=== PATIENT | male | born 1980 | race Caucasian/White ===

== ENCOUNTER 2020-06-01 11:56 | Outpatient (CLI) | payer OTHER ==
--- NOTE | 2020-06-01 13:49 | RAD ---
RIGHT KNEE: Two views. HISTORY: Nonhealing wound right lower extremity. There are mild degenerative changes. The medial and lateral joint spaces are preserved. Narrowing and degenerative change at the patellofemoral joint with articular sclerosis and irregularity. No signif icant joint effusion. No fracture or acute osseous abnormality. IMPRESSION: Degenerative changes of the patellofemoral joint noted. POS: AGW
== END 2020-06-01 11:57 | disposition home or self-care (01) ==
LOC: RAD 11:56
PROVIDERS: ATTEND Surgery
DX: S81.801A Unspecified open wound, right lower leg, initial encounter (principal); M17.11 Unilateral primary osteoarthritis, right knee

== ENCOUNTER 2020-06-01 13:02 | Outpatient (CLI) | payer OTHER ==
[2020-06-01 15:44] LABS: #Basophils 0.1 10x3/uL (0.0-0.2); #Eosinphils 0.4 10x3/uL (0.0-0.5); #Monocytes 1.1 10x3/uL (0.0-1.1); #Neutrophils 6.2 10x3/uL (1.5-8.4); %Basophils 0.6 % (0.0-2.0); %Eosinophils 4.2 % (0.0-6.0); %Lymphocytes 21.5 % (18.0-47.0); %Monocytes 10.6 % (0.0-10.0); %Neutrophils 62.9 % (40.0-75.0); Hemoglobin 15.2 g/dL (13.5-17.5); Mean Corpuscular HGB CONC 34.1 g/dL (32.0-36.0); Mean Corpuscular Hemoglobin 31.6 pg (27.0-33.0); Mean Corpuscular Volume 92.7 fl (81.2-95.1); Mean Platelet Volume 10.6 fl (7.4-10.4); Platelet Count 413 10x3/uL (150-450); RBC Distribution Width 13.8 % (11.5-14.5); Red Blood Cell (RBC) Count 4.81 10x6/uL (4.32-5.72); White Blood Cell (WBC) Count 9.9 10x3/uL (3.5-10.5)
[2020-06-02 10:07] LABS: SARS-CoV-2 PCR by NAA Not Detected (NotDetected)
== END 2020-06-01 13:03 | disposition home or self-care (01) ==
LOC: LABBT 13:02
PROVIDERS: ATTEND Surgery
DX: Z01.812 Encounter for preprocedural laboratory examination (principal); Z20.822 Contact with and (suspected) exposure to COVID-19; L98.493 Non-pressure chronic ulcer of skin of other sites with necrosis of muscle
CPT/HCPCS: 85025; 87635; U0003; U0005

== ENCOUNTER 2020-06-04 08:49 | Day surgery (SDC) | payer OTHER ==
[2020-06-03 12:35] VITALS: BMI 47.9
[2020-06-04] MEDS ORDERED: Midazolam HCl 2 mg/2 ml Vial ONE (10:15)
[2020-06-04] MEDS ORDERED: HYDROmorphone 0.5 MG/0.5 ML SYRINGE ONE (10:17)
[2020-06-04] MEDS ORDERED: Fentanyl 100 MCG/2 ML VIAL ONE ×2 (11:00→11:55)
[2020-06-04] MEDS ORDERED: HYDROmorphone 2 MG/ML VIAL ONE (11:15)
[2020-06-04] MEDS ORDERED: Ondansetron PF 4 MG/2 ML Vial ONE (13:35)
[2020-06-04] MEDS ORDERED: Lidocaine 1% PF 5 ML VIAL ONE (13:35)
[2020-06-04] MEDS ORDERED: PROPOFOL 200 MG/20 ML VIAL ONE (13:35)
[2020-06-04] MEDS ORDERED: Ketorolac Tromethamine 30 MG/ML VIAL ONE (13:35)
== END 2020-06-04 13:15 | disposition home or self-care (01) ==
LOC: SDC 08:49
PROVIDERS: ATTEND Surgery
PROC: 0JBN0ZZ Excision of Right Lower Leg Subcutaneous Tissue and Fascia, Open Approach (ICD-10-PCS; principal; 2020-06-04)
DX: L97.813 Non-pressure chronic ulcer of other part of right lower leg with necrosis of muscle (principal); L03.90 Cellulitis, unspecified; F17.210 Nicotine dependence, cigarettes, uncomplicated; E66.01 Morbid (severe) obesity due to excess calories; Z68.42 Body mass index [BMI] 45.0-49.9, adult; Z79.2 Long term (current) use of antibiotics
CPT/HCPCS: 87070; 87076; 87077; 87186; 87205; 88304; 88305; J0690; J1170; J1885; J2250; J2405; J2704; J3010